=== PATIENT | female | born 1930 | race African-American/Black ===

== ENCOUNTER 2016-10-07 14:02 | Outpatient (CLI) | payer MEDICARE ==
[2016-10-07 14:39] LABS: INR-International Normal Ratio 2.3; Prothrombin Time 25.6 SEC (12.0-14.7)
== END 2016-10-07 14:03 | disposition home or self-care (01) ==
LOC: MADLAB 14:02
PROVIDERS: ATTEND Internal Medicine Cardiovascular Disease
DX: Z51.81 Encounter for therapeutic drug level monitoring (principal); Z86.718 Personal history of other venous thrombosis and embolism
CPT/HCPCS: 36415; 85610

== ENCOUNTER 2017-03-07 23:33 | Emergency (ER) | payer MEDICARE ==
[~2017-03-07 23:33] MED LIST: Donnatal Elixir 16.2 MG/5 ML UDCUP ONE
[2017-03-07] MEDS ORDERED: Lidocaine Viscous Sol 2% 15 ml UD Cup ONE (23:56)
[2017-03-07] MEDS ORDERED: Mag-Al Plus 1200 MG/1200 MG/120 MG/30 ML UDCUP ONE (23:56)
[2017-03-07] MEDS ORDERED: Donnatal Elixir 16.2 MG/5 ML UDCUP ONE (23:56)
== END 2017-03-08 00:30 | disposition home or self-care (01) ==
LOC: MADERS 23:33
DX: R10.13 Epigastric pain (principal); I25.10 Atherosclerotic heart disease of native coronary artery without angina pectoris; E11.9 Type 2 diabetes mellitus without complications; I10 Essential (primary) hypertension; Z87.891 Personal history of nicotine dependence; Z86.718 Personal history of other venous thrombosis and embolism; Z79.82 Long term (current) use of aspirin; Z79.891 Long term (current) use of opiate analgesic; Z79.899 Other long term (current) drug therapy; Z79.01 Long term (current) use of anticoagulants
CPT/HCPCS: 93005

== ENCOUNTER 2017-03-13 07:58 | Outpatient (CLI) | payer MEDICARE ==
[2017-03-13 08:53] LABS: INR-International Normal Ratio 3.6; Prothrombin Time 35.5 SEC (12.0-14.7)
== END 2017-03-13 07:59 | disposition home or self-care (01) ==
LOC: MADLAB 07:58
PROVIDERS: ATTEND Internal Medicine Cardiovascular Disease
DX: Z51.81 Encounter for therapeutic drug level monitoring (principal); Z86.718 Personal history of other venous thrombosis and embolism; Z79.01 Long term (current) use of anticoagulants
CPT/HCPCS: 36415; 85610

== ENCOUNTER 2017-04-07 09:23 | Outpatient (CLI) | payer MEDICARE ==
[2017-04-07 09:43] LABS: INR-International Normal Ratio 2.3
== END 2017-04-07 09:24 | disposition home or self-care (01) ==
LOC: MADLAB 09:23
PROVIDERS: ATTEND Internal Medicine Cardiovascular Disease
DX: Z86.718 Personal history of other venous thrombosis and embolism (principal)
CPT/HCPCS: 36415; 85610

== ENCOUNTER 2017-04-11 08:04 | Outpatient (CLI) | payer MEDICARE ==
--- NOTE | 2017-04-11 11:01 | ULT ---
ABDOMINAL ULTRASOUND: History: Abdominal pain, epigastric pain for multiple years. Comparison: CT abdomen and pelvis, 2015. FINDINGS: The hepatic echotexture is coarsened, suggesting steatosis. There is an exophytic cyst measuring 2.6 cm. Common bile duct measures 3 mm. The wall thickness measures 2 mm and is normal. Right kidney measures 6.5 x 3 x 3.7 cm. Spleen measures 7.8 x 3.5 x 4.3 cm. Left kidney measures 9.6 x 4.3 x 4.5 cm. No mass, hydronephrosis, or calcification of either kidney. Ureter and IVC not well seen. Pancreas is not well seen. The ultrasound Harp's sign was positive according to the technologist. IMPRESSION: 1. Positive sonographic Harp's sign according to the technologist without cholelithiasis however t he wall thickness measures up to 2-3 mm. HIDA scan may be beneficial in this patient if there is cli nical concern for acute cholecystitis. 2. Renal size at lower limits of normal. 3. No evidence of obstructive uropathy. POS: [facility]
== END 2017-04-11 08:05 | disposition home or self-care (01) ==
LOC: MADULT 08:04
PROVIDERS: ATTEND Family Medicine
DX: R10.13 Epigastric pain (principal); Z86.718 Personal history of other venous thrombosis and embolism
CPT/HCPCS: 76700

== ENCOUNTER 2017-05-22 07:59 | Outpatient (CLI) | payer MEDICARE ==
[2017-05-22 08:49] LABS: INR-International Normal Ratio 2.6; Prothrombin Time 28.8 SEC (12.0-14.7)
[2017-05-22 09:11] LABS: Anion Gap 13 mmol/L (10-20); BUN (Urea Nitrogen) 9 mg/dL (9.8-20.1); Calc. Creatinine Clearance 0 mL/min (70-130); Calcium 9.3 mg/dL (7.8-10.44); Carbon Dioxide 27 mmol/L (23-31); Chloride 102 mmol/L (98-107); Estimated GFR-MDRD 82; Glucose 151 mg/dL (83-110); Sodium 138 mmol/L (136-145)
[2017-05-22 17:27] LABS: Free Thyroxine Index 2.08 (1.4-3.1); T4 9.2 ug/dL (4.87-11.72)
== END 2017-05-22 08:00 | disposition home or self-care (01) ==
LOC: MADLAB 07:59
PROVIDERS: ATTEND Internal Medicine
DX: E03.9 Hypothyroidism, unspecified (principal); Z86.718 Personal history of other venous thrombosis and embolism
CPT/HCPCS: 36415; 80048; 84436; 84443; 84479; 85610

== ENCOUNTER 2017-05-26 08:15 | Outpatient (CLI) | payer MEDICARE ==
--- NOTE | 2017-05-26 08:59 | RAD ---
RIGHT KNEE FOUR VIEWS HISTORY: Right knee pain. FINDINGS: There is mild joint space narrowing and moderate degree of tricompartmental osteophytosis. Fluid di stends the suprapatellar bursa. Chondrocalcinosis is evident. No acute fracture, dislocation, or a ggressive osseous erosions. Calcification overlies the arterial structures. IMPRESSION: 1. Moderate degree of tricompartmental osteoarthritis. 2. Joint effusion. 3. Atherosclerosis. POS: [facility]
== END 2017-05-26 08:16 | disposition home or self-care (01) ==
LOC: MADRAD 08:15
PROVIDERS: ATTEND Family Medicine
DX: M25.561 Pain in right knee (principal); M17.11 Unilateral primary osteoarthritis, right knee; M25.461 Effusion, right knee; I70.90 Unspecified atherosclerosis; Z86.718 Personal history of other venous thrombosis and embolism

== ENCOUNTER 2017-06-27 08:35 | Outpatient (CLI) | payer MEDICARE ==
[2017-06-27 09:52] LABS: INR-International Normal Ratio 2.2; Prothrombin Time 25.2 SEC (12.0-14.7)
== END 2017-06-27 08:36 | disposition home or self-care (01) ==
LOC: MADLAB 08:35
PROVIDERS: ATTEND Internal Medicine Cardiovascular Disease
DX: Z86.718 Personal history of other venous thrombosis and embolism (principal)
CPT/HCPCS: 36415; 85610

== ENCOUNTER 2017-11-09 11:09 | Outpatient (CLI) | payer MEDICARE ==
[2017-11-09 11:29] LABS: Prothrombin Time 32.6 SEC (12.0-14.7)
--- NOTE | 2017-11-09 12:40 | RAD ---
KUB: History: Left sided abdominal pain. FINDINGS: The bowel gas pattern appears nonobstructive. No radiopaque calculi are seen. An IVC filter is noted. There are arthritic changes of the spine. IMPRESSION: No acute findings. POS: [facility]
== END 2017-11-09 11:10 | disposition home or self-care (01) ==
LOC: MADRAD 11:09
PROVIDERS: ATTEND Family Medicine
DX: R10.9 Unspecified abdominal pain (principal); Z86.718 Personal history of other venous thrombosis and embolism
CPT/HCPCS: 36415; 74018; 85610

== ENCOUNTER 2017-12-18 12:57 | Outpatient (CLI) | payer MEDICARE ==
[2017-12-18 13:57] LABS: INR-International Normal Ratio 2.5; Prothrombin Time 28.1 SEC (12.0-14.7)
[2017-12-18 14:34] LABS: ALT (SGPT) 36 U/L (8-55); AST (SGOT) 50 U/L (5-34); Albumin 3.7 g/dL (3.4-4.8); Alkaline Phosphatase 100 U/L (40-150); Anion Gap 16 mmol/L (10-20); BUN (Urea Nitrogen) 10 mg/dL (9.8-20.1); Bilirubin, Total 0.9 mg/dL (0.2-1.2); Calc. Creatinine Clearance 0 mL/min (70-130); Calcium 9.1 mg/dL (7.8-10.44); Carbon Dioxide 25 mmol/L (23-31); Cardiac Risk 4.3 (Less than 4.5); Chloride 101 mmol/L (98-107); Cholesterol 143 mg/dl (< 200 Desired); Estimated GFR-MDRD 83; Glucose 183 mg/dL (83-110); HDL Cholesterol 33 mg/dL (>60 Neg Risk); LDL Cholesterol, Calculated 82 mg/dL; Potassium 3.5 mmol/L (3.5-5.1); Protein, Total 6.7 g/dL (6.0-8.3); Sodium 138 mmol/L (136-145); Triglycerides 139 mg/dL (Less than 150)
[2017-12-18 20:44] LABS: Free Thyroxine Index 2.57 (1.4-3.1); T4 11.3 ug/dL (4.87-11.72); Vitamin D, 25 Hydroxy 101.4 ng/ml (> 30.0)
[2017-12-19 07:40] LABS: Thyroid Stimulating Hormone 0.498 uIU/mL (0.35-4.94)
== END 2017-12-18 12:58 | disposition home or self-care (01) ==
LOC: MADLAB 12:57
PROVIDERS: ATTEND Internal Medicine
DX: E11.65 Type 2 diabetes mellitus with hyperglycemia (principal); E03.9 Hypothyroidism, unspecified; E55.9 Vitamin D deficiency, unspecified; D51.8 Other vitamin B12 deficiency anemias; E78.00 Pure hypercholesterolemia, unspecified; R53.81 Other malaise; Z79.899 Other long term (current) drug therapy
CPT/HCPCS: 36415; 80053; 80061; 82306; 82607; 84436; 84443; 84479; 85610

== ENCOUNTER 2018-01-07 14:03 | Emergency (ER) | payer MEDICARE ==
[2018-01-07] MEDS ORDERED: Lidocaine Viscous Sol 2% 15 ml UD Cup ONE (15:14)
[2018-01-07] MEDS ORDERED: Mag-Al Plus 1200 MG/1200 MG/120 MG/30 ML UDCUP ONE (15:14)
[2018-01-07] MEDS ORDERED: Donnatal Elixir 16.2 MG/5 ML UDCUP ONE (15:14)
[2018-01-07] MEDS ORDERED: Morphine 10 MG/ML VIAL ONE (15:14)
[2018-01-07] MEDS ORDERED: Ondansetron HCl/PF 4 MG/2 ML Vial ONE (15:14)
[2018-01-07] MEDS ORDERED: Acetaminophen 500 MG TAB ONE (15:25)
[2018-01-07 17:58] LABS: Lymphocytes 47 % (21-51); MDiff Complete? YES; Mean Corpuscular HGB CONC 34.5 g/dL (32.0-36.0); Mean Corpuscular Hemoglobin 26.1 pg (27.0-31.0); Mean Corpuscular Volume 75.8 fl (81.0-99.0); Mean Platelet Volume 7.8 fL (7.4-10.4); Monocytes 5 % (0-10); Neutrophil 48 % (42-75); PLT Morphology Comment Appears Adequate; Platelet Count 209 thou/uL (130-400); RBC Distribution Width 13.2 % (11.5-14.5); Red Blood Cell (RBC) Count 4.59 mill/uL (4.20-5.40); White Blood Cell (WBC) Count 7.4 thou/uL (4.8-10.8)
[2018-01-07 18:09] LABS: ALT (SGPT) 22 U/L (8-55); AST (SGOT) 31 U/L (5-34); Albumin 3.2 g/dL (3.4-4.8); Alkaline Phosphatase 87 U/L (40-150); Anion Gap 11 mmol/L (10-20); BUN (Urea Nitrogen) 10 mg/dL (9.8-20.1); Calc. Creatinine Clearance 0 mL/min (70-130); Calcium 8.8 mg/dL (7.8-10.44); Carbon Dioxide 25 mmol/L (23-31); Chloride 102 mmol/L (98-107); Estimated GFR-MDRD 87; Globulin 3.4 g/dL (2.4-3.5); Glucose 130 mg/dL (83-110); Potassium 3.4 mmol/L (3.5-5.1); Protein, Total 6.6 g/dL (6.0-8.3); Sodium 135 mmol/L (136-145)
--- NOTE | 2018-01-07 20:19 | RAD ---
PORTABLE AP CHEST X-RAY: 01/07/2018 HISTORY: Shortness of breath. COMPARISON: 10/18/2015 FINDINGS: The cardiac silhouette remains enlarged. The pulmonary vasculature is at the upper limits of normal. There is suboptimal evaluation of the left lung base, due to the enlarged cardiac silhouette and th e technique of the study. Pleural fluid, atelectasis, and/or infiltrate at the left lung base cannot be excluded based on this exam. Vascular calcifications are seen in the thoracic aorta. No other interval change. IMPRESSION: 1. Suboptimal evaluation, left lung base. Atelectasis, pleural fluid, or infiltrate, left lung base , cannot be excluded based on this exam. 2. Cardiomegaly with pulmonary vasculature at the upper limits of normal. POS: [facility]
== END 2018-01-07 19:37 | disposition home or self-care (01) ==
LOC: MADERS 14:03
DX: K21.9 Gastro-esophageal reflux disease without esophagitis (principal); K57.92 Diverticulitis of intestine, part unspecified, without perforation or abscess without bleeding; E87.70 Fluid overload, unspecified; I25.10 Atherosclerotic heart disease of native coronary artery without angina pectoris; E11.9 Type 2 diabetes mellitus without complications; I10 Essential (primary) hypertension; Z87.891 Personal history of nicotine dependence; Z86.718 Personal history of other venous thrombosis and embolism; Z79.82 Long term (current) use of aspirin; Z79.899 Other long term (current) drug therapy; Z79.01 Long term (current) use of anticoagulants
CPT/HCPCS: 36415; 71045; 80053; 85025; 96374; 96375; J2270; J2405

== ENCOUNTER 2018-04-16 07:56 | Outpatient (CLI) | payer MEDICARE ==
[2018-04-16 08:31] LABS: INR-International Normal Ratio 3.7
== END 2018-04-16 07:57 | disposition home or self-care (01) ==
LOC: MADLAB 07:56
PROVIDERS: ATTEND Internal Medicine Cardiovascular Disease
DX: Z86.718 Personal history of other venous thrombosis and embolism (principal)
CPT/HCPCS: 36415; 85610

== ENCOUNTER 2018-04-30 07:53 | Outpatient (CLI) | payer MEDICARE ==
[2018-04-30 08:27] LABS: INR-International Normal Ratio 2.6; Prothrombin Time 28.1 SEC (12.0-14.7)
== END 2018-04-30 07:54 | disposition home or self-care (01) ==
LOC: MADLAB 07:53
PROVIDERS: ATTEND Internal Medicine Cardiovascular Disease
DX: Z86.718 Personal history of other venous thrombosis and embolism (principal)
CPT/HCPCS: 36415; 85610

== ENCOUNTER 2018-05-01 15:01 | Outpatient (CLI) | payer MEDICARE ==
--- NOTE | 2018-05-01 17:10 | RAD ---
TWO VIEWS CHEST: 05/01/18 COMPARISON: 01/07/18. HISTORY: Short of breath. FINDINGS: There is prominence of the cardiac silhouette. There is no pneumothorax. There is pulmonary vascular congestion and perihilar/bibasilar interstitial prominence, slightly worse when compared to prior lissette ging. Blunting of the right costophrenic angle suggests a small right pleural effusion. No air space disease. Lateral imaging demonstrates an incompletely imaged IVC filter and atherosclerotic calcifica tion within the abdominal aorta. IMPRESSION: Interstitial opacity and pulmonary vascular congestion, and probable right pleural effusion. The find ings suggest interstitial pulmonary edema. POS: [facility]
--- NOTE | 2018-05-01 17:19 | RAD ---
ONE VIEW ABDOMEN 05/01/18 COMPARISON: 11/09/17. HISTORY: Left lower quadrant pain. FINDINGS: Nonspecific bowel gas pattern. Moderate fecal material in a nondistended, nondilated colon. No eviden ce of pneumoperitoneum on the supine projection. No suspicious densities in the abdomen or pelvis. IV C filter is noted. IMPRESSION: Nonspecific bowel gas pattern. POS: [facility]
== END 2018-05-01 15:02 | disposition home or self-care (01) ==
LOC: MADRAD 15:01
PROVIDERS: ATTEND Family Medicine
DX: R06.02 Shortness of breath (principal); R10.32 Left lower quadrant pain; R09.89 Other specified symptoms and signs involving the circulatory and respiratory systems; R91.8 Other nonspecific abnormal finding of lung field
CPT/HCPCS: 71046; 74018; 93005; 93010

== ENCOUNTER 2018-07-27 12:06 | Outpatient (CLI) | payer MEDICARE ==
[2018-07-27 12:43] LABS: INR-International Normal Ratio 2.3; Prothrombin Time 25.1 SEC (12.0-14.7)
[2018-07-27 12:50] LABS: ALT (SGPT) 23 U/L (8-55); AST (SGOT) 33 U/L (5-34); Albumin 3.7 g/dL (3.4-4.8); Alkaline Phosphatase 101 U/L (40-150); Anion Gap 14 mmol/L (10-20); BUN (Urea Nitrogen) 13 mg/dL (9.8-20.1); Bilirubin, Total 0.7 mg/dL (0.2-1.2); Calc. Creatinine Clearance 0 mL/min (70-130); Calcium 9.5 mg/dL (7.8-10.44); Carbon Dioxide 25 mmol/L (23-31); Cardiac Risk 3.6 (Less than 4.5); Chloride 107 mmol/L (98-107); Cholesterol 157 mg/dl (< 200 Desired); Estimated GFR-MDRD 75; Globulin 3.5 g/dL (2.4-3.5); Glucose 154 mg/dL (83-110); HDL Cholesterol 44 mg/dL (>60 Neg Risk); LDL Cholesterol, Calculated 86 mg/dL; Potassium 3.6 mmol/L (3.5-5.1); Protein, Total 7.2 g/dL (6.0-8.3); Sodium 142 mmol/L (136-145); Triglycerides 137 mg/dL (Less than 150)
[2018-07-27 13:04] LABS: Thyroid Stimulating Hormone 0.8406 uIU/mL (0.35-4.94)
[2018-07-27 17:11] LABS: Free Thyroxine Index 2.34 (1.4-3.1); T4 10.6 ug/dL (4.87-11.72)
== END 2018-07-27 12:07 | disposition home or self-care (01) ==
LOC: MADLAB 12:06
PROVIDERS: ATTEND Internal Medicine
DX: E11.65 Type 2 diabetes mellitus with hyperglycemia (principal); E03.9 Hypothyroidism, unspecified; E78.5 Hyperlipidemia, unspecified
CPT/HCPCS: 36415; 80053; 80061; 84436; 84443; 84479; 85610

== ENCOUNTER 2018-08-08 09:07 | Outpatient (CLI) | payer MEDICARE ==
--- NOTE | 2018-08-08 09:51 | RAD ---
RIGHT KNEE RADIOGRAPHS TWO VIEWS: Date: 08-08-18 Provided Clinical History: Osteoarthritis. FINDINGS: There is no evidence for fracture or other acute osseous abnormality. Tricompartmental osteophyte for mation with tricompartmental joint space narrowing and moderate knee joint capsular distension. Vascu lar calcifications are seen. IMPRESSION: Degenerative arthrosis of the right knee with associated knee joint effusion. POS: [facility]
--- NOTE | 2018-08-08 09:51 | RAD ---
LEFT KNEE TWO VIEWS: HISTORY: An 87-year-old female with a history of osteoarthritis. FINDINGS: AP and lateral standing views of the left knee are performed. Tricompartment arthrosis and degenerat meli changes are noted, with the most marked narrowing involving the medial compartment, with hypertro phic osteophytosis. No acute fracture or dislocation. IMPRESSION: 1. Tricompartment osteoarthrosis. 2. No acute fracture or dislocation. POS: [facility]
== END 2018-08-08 09:08 | disposition home or self-care (01) ==
LOC: MADRAD 09:07
PROVIDERS: ATTEND Family Medicine
DX: M17.0 Bilateral primary osteoarthritis of knee (principal); M25.461 Effusion, right knee

== ENCOUNTER 2018-09-26 20:42 | Emergency (ER) | payer MEDICARE ==
[2018-09-26] MEDS ORDERED: Nitroglycerin 2% Ointment 1 INCH/1 GM Packet ONE (21:11)
[2018-09-26 21:28] LABS: Anisocytosis SLIGHT = 6-15 cells (100X) (0-5/hpf); Hemoglobin 11.7 g/dL (12.0-16.0); Hypochromia SLIGHT = 6-15 cells (100X) (0-5/hpf); Lymphocytes 29 % (21-51); MDiff Complete? YES; Mean Corpuscular HGB CONC 31.6 g/dL (32.0-36.0); Mean Corpuscular Hemoglobin 24.9 pg (27.0-31.0); Mean Corpuscular Volume 78.8 fL (78.0-98.0); Mean Platelet Volume 8.5 fL (7.4-10.4); Microcytosis SLIGHT = 6-15 cells (100X) (0-5/hpf); Monocytes 7 % (0-10); Neutrophil 62 % (42-75); Platelet Count 329 thou/uL (130-400); Poikilocytosis SLIGHT = 6-15 cells (100X) (0-5/hpf); RBC Distribution Width 13.7 % (11.5-14.5); RBC Morphology Abnormal; Reactive Lymphocytes 2 % (0-10); White Blood Cell (WBC) Count 11.9 thou/uL (4.8-10.8)
[2018-09-26 21:30] LABS: AST (SGOT) 27 U/L (5-34); Albumin 3.8 g/dL (3.4-4.8); Anion Gap 14 mmol/L (10-20); Bilirubin, Total 0.5 mg/dL (0.2-1.2); Calc. Creatinine Clearance 0 mL/min (70-130); Calcium 9.3 mg/dL (7.8-10.44); Carbon Dioxide 30 mmol/L (23-31); Chloride 100 mmol/L (98-107); Estimated GFR-MDRD 72; Globulin 3.2 g/dL (2.4-3.5); Magnesium 1.7 mg/dL (1.6-2.6); Potassium 3.9 mmol/L (3.5-5.1); Sodium 140 mmol/L (136-145)
--- NOTE | 2018-09-26 21:39 | RAD ---
TWO VIEWS OF THE CHEST: 09/26/18 COMPARISON: 05/01/18 HISTORY: Chest pain and hypertension. FINDINGS: Two views of the chest shows an enlarged but stable cardiomediastinal silhouette. Increased interstit ial markings are stable. There is no evidence of consolidation, mass, or pleural effusion. IMPRESSION: Cardiomegaly without evidence of acute cardiopulmonary disease. POS: [facility]
[2018-09-26 21:41] LABS: ALT (SGPT) 19 U/L (8-55); Alkaline Phosphatase 98 U/L (40-150); BUN (Urea Nitrogen) 13 mg/dL (9.8-20.1); Glucose 117 mg/dL (83-110)
[2018-09-26] MEDS ORDERED: HYDROcodone/Acetaminophen 5/325 mg Tablet ONE (21:52)
== END 2018-09-26 22:22 | disposition short-term general hospital (02) ==
LOC: MADERS 20:42
DX: I20.9 Angina pectoris, unspecified (principal); E03.9 Hypothyroidism, unspecified; E78.5 Hyperlipidemia, unspecified; I10 Essential (primary) hypertension; E11.9 Type 2 diabetes mellitus without complications; Z86.718 Personal history of other venous thrombosis and embolism; Z79.82 Long term (current) use of aspirin; Z79.899 Other long term (current) drug therapy
CPT/HCPCS: 71046; 80053; 83735; 83880; 84484; 85025; 93005

== ENCOUNTER 2018-10-31 10:12 | Outpatient (CLI) | payer MEDICARE ==
[2018-10-31 11:00] LABS: INR-International Normal Ratio 1.7
== END 2018-10-31 10:13 | disposition home or self-care (01) ==
LOC: MADLAB 10:12
PROVIDERS: ATTEND Family Medicine
DX: Z86.718 Personal history of other venous thrombosis and embolism (principal)
CPT/HCPCS: 36415; 85610

== ENCOUNTER 2018-12-20 04:35 | Inpatient (IN) | payer MEDICARE ==
[2018-12-20] MEDS ORDERED: Levofloxacin 500 mg/D5W 100 ml Premix Bag ONE (05:50)
[2018-12-20 06:20] LABS: #Basophils 0.1 thou/uL (0.0-0.2); #Lymphocytes 1.1 thou/uL (1.20-3.40); #Monocytes 0.6 thou/uL (0.11-0.59); #Neutrophils 10.9 thou/uL (1.40-6.50); %Basophils 0.9 % (0.0-1.0); %Eosinophils 0.3 % (0.0-10.0); %Lymphocytes 8.5 % (21.0-51.0); %Neutrophils 85.3 % (42.0-75.0); Hemoglobin 11.5 g/dL (12.0-16.0); Mean Corpuscular HGB CONC 31.9 g/dL (32.0-36.0); Mean Corpuscular Hemoglobin 24.4 pg (27.0-31.0); Mean Corpuscular Volume 76.6 fL (78.0-98.0); Platelet Count 261 thou/uL (130-400); RBC Distribution Width 13.9 % (11.5-14.5); Red Blood Cell (RBC) Count 4.71 mill/uL (4.20-5.40); White Blood Cell (WBC) Count 12.7 thou/uL (4.8-10.8)
[2018-12-20 06:32] LABS: ALT (SGPT) 20 U/L (8-55); AST (SGOT) 25 U/L (5-34); Albumin 3.5 g/dL (3.4-4.8); Alkaline Phosphatase 94 U/L (40-150); Anion Gap 14 mmol/L (10-20); BUN (Urea Nitrogen) 10 mg/dL (9.8-20.1); Bilirubin, Total 1.2 mg/dL (0.2-1.2); Calc. Creatinine Clearance 0 mL/min (70-130); Calcium 9.4 mg/dL (7.8-10.44); Carbon Dioxide 25 mmol/L (23-31); Chloride 101 mmol/L (98-107); Estimated GFR-MDRD 80; Globulin 3.6 g/dL (2.4-3.5); Glucose 167 mg/dL (83-110); Potassium 3.6 mmol/L (3.5-5.1); Protein, Total 7.1 g/dL (6.0-8.3); Sodium 136 mmol/L (136-145)
[2018-12-20 06:34] LABS: Anisocytosis SLIGHT = 6-15 cells (100X) (0-5/hpf); MDiff Complete? YES; Platelet Morphology Comment Appears Adequate
--- NOTE | 2018-12-20 08:06 | RAD ---
SINGLE VIEW CHEST: Date: 12/20/18 COMPARISON: 09/28/18. HISTORY: Dyspnea. FINDINGS: Single view of the chest shows an enlarged but stable cardiomediastinal silhouette. Increased interst itial lung markings are present. There may be superimposed air space opacities in the bilateral lower lobes. IMPRESSION: 1. Cardiomegaly. 2. Possible bilateral lower lobe atelectasis versus infiltrates. POS: [facility]
[2018-12-20 08:47] VITALS: BMI 34.1
[2018-12-20] MEDS ORDERED: Benzonatate 100 MG CAP PO PRN (09:46)
[2018-12-20] MEDS ORDERED: traMADol HCl 50 MG TAB PO PRN (09:49)
[2018-12-20] MEDS ORDERED: HYDROcodone/Acetaminophen 5/325 mg Tablet PO PRN ×2 (10:02)
[2018-12-20] MEDS ORDERED: Ondansetron PF 4 MG/2 ML Vial SLOW IVP PRN (10:02)
[2018-12-20] MEDS ORDERED: Acetaminophen 325 MG TAB PO PRN (10:02)
[2018-12-20] MEDS ORDERED: Aspirin Chewable 81 MG TAB PO SCH (10:15)
[2018-12-20] MEDS ORDERED: Hydrochlorothiazide 25 MG TAB PO SCH (10:15)
[2018-12-20] MEDS: Azithromycin 250 MG TAB PO SCH (10:25)
[2018-12-20] MEDS ORDERED: Losartan 25 MG TAB PO SCH (10:30)
[2018-12-20] MEDS ORDERED: Levothyroxine Sodium 88 MCG TAB PO SCH (10:30)
[2018-12-20 11:36] LABS: INR-International Normal Ratio 2.5; Prothrombin Time 26.6 SEC (12.0-14.7)
[2018-12-20] MEDS ORDERED: Guaifenesin DM 100-10/5 ML UDCUP PO PRN (17:56)
[2018-12-20] MEDS: metFORMIN XR 500 MG TAB PO SCH (20:45)
[2018-12-20] MEDS: Atorvastatin Calcium 10 MG TAB PO SCH (20:45)
[2018-12-20] MEDS: Alogliptin 25 MG TAB PO SCH (20:47)
--- NOTE | 2018-12-21 01:01 | HP ---
PRIMARY CARE PHYSICIAN: Vi Mclaughlin MD REASON FOR ADMISSION: Community-acquired pneumonia, failed outpatient treatment. HISTORY OF PRESENT ILLNESS: Ms. Ya is an 88-year-old female with a medical history of diabetes type 2, obstructive sleep apnea, hypertension, dyslipidemia, hypothyroidism, history of DVTs and PEs, on oral anticoagulant, and GERD. The patient was in her normal state of health until 4 days ago when she started having coughing spells, shortness of breath and congestion. The patient did see me in the office on the a.m. on 12/19 due to these and was diagnosed with right-sided lower lobe pneumonia. The patient was started on azithromycin and told to start neb treatments every 4 hours for the next 2 days. She was told to follow up with me in 2 days, but the patient states she woke up in the middle of the night in respiratory distress, coughing spells and just very lethargic. The patient presented to the emergency room complaining of fever, body aches, shortness of breath and wheezing. Initial vital signs showed a temperature of 101.5, respirations 20, blood pressure 174/68, O2 94% on room air. The patient had rales to the right middle and lower lobe and chest x-ray in the emergency room showed patchy infiltrates to the right middle and lower lobes. The patient was given Levaquin, DuoNebs, and labs were drawn. A flu test was negative and the decision was made to admit the patient for acute lower extremity edema and community-acquired pneumonia. When I saw the patient in the room, she stated that she felt a little better than she did upon evaluation in the ER. She continues to have a productive cough. She complains that the sputum is now greenish to yellow without any blood. She has had fevers, but none since she has been on the floor. She denies any chest pain, palpitations, or dizziness. PAST MEDICAL HISTORY: Diabetes type 2, DVT with PE, on Coumadin, hypertension, hyperlipidemia, hypothyroidism, obstructive sleep apnea, and GERD. PAST SURGICAL HISTORY: Stents placement. SOCIAL HISTORY: The patient lives at home with family. Denies alcohol, tobacco, or illicit drug use. ALLERGIES: PENICILLIN CAUSES RASH. FAMILY HISTORY: Significant for thyroid disease and heart disease. CODE STATUS: The patient is a full code. MEDICATIONS: 1. Azithromycin 250 daily x4 days. 2. Benzonatate (Tessalon Perles) 100 t.i.d. 3. Levothyroxine 88 mcg daily. 4. Losartan/hydrochlorothiazide 100/25. 5. Protonix 40 daily. 6. Kombiglyze XR 01/1000 one tab daily. 7. Zocor 40 daily. 8. Warfarin 4 mg daily. 9. Aspirin 81 mg daily. REVIEW OF SYSTEMS: Complete review of systems negative, otherwise mentioned in the history of present illness as below: CONSTITUTIONAL: Denies weight gain, weight loss. Complains of fever and generalized weakness. CARDIOVASCULAR: Denies chest pain, palpitation, or orthopnea. RESPIRATORY: Complains of cough, shortness of breath. GASTROINTESTINAL: Denies abdominal pain, nausea, vomiting, diarrhea, or constipation. GENITOURINARY: Denies urinary frequency, urgency, or dysuria. MUSCULOSKELETAL: Complains of bilateral knee pains. Denies swelling or erythema. NEUROLOGIC: Denies confusion, headaches, or blurry vision. SKIN: Denies rash or bleeding tendencies. PHYSICAL EXAMINATION: VITAL SIGNS: Temperature 99.3, pulse 98, respirations 18, blood pressure 156/68, O2 sats 93% on room air. GENERAL: The patient is a very pleasant 88-year-old female sitting comfortably in the bedside chair, in no apparent distress. Cooperative with exam. HEENT: Normocephalic, atraumatic. Pupils are equal, round, reactive to light. Sclerae are nonicteric. Moist mucous membranes without erythema or exudate. NECK: Supple. No JVD. CARDIOVASCULAR: Heart has regular rhythm. No murmurs. S1 and S2. LUNGS: Bilateral rales in the lower bases with crackles. No wheezing. ABDOMEN: Positive bowel sounds. Soft, nontender, nondistended. No guarding. No rebound. No rigidity. EXTREMITIES: No clubbing, cyanosis, or edema. NEUROLOGIC: The patient is alert, awake, oriented x3. No focal deficits. LABORATORY DATA AND IMAGING STUDIES: 1. Chest x-ray shows cardiomegaly. 2. Possible bilateral lower lobe atelectasis versus infiltrates. Labs, WBC 12.7, hemoglobin 11.5, hematocrit 36.1, platelets 261. PT 26.6, INR 2.5. Lactic acid 1.2. Troponin 0.01. BNP 67.4. Sodium 136, potassium 3.4, BUN 10, creatinine 0.82, glucose 167. ASSESSMENT AND PLAN: This is an 88-year-old female with a history of hypertension, hyperlipidemia, DVT, pulmonary embolism, on Coumadin, obstructive sleep apnea, who was admitted due to worsening shortness of breath, fever and cough. The patient is to be admitted to the medical floor for community-acquired pneumonia. The patient will be started on IV Levaquin once a day for anticipated 7-day course. We will start DuoNebs every 4 hours for shortness of breath and wheezing. We will give the patient Robitussin DM p.r.n. cough. We will replete electrolytes and monitor hemodynamic status. We will follow a repeat chest x-ray prior to discharge. We will restart the patient's home medications. We will continue our Coumadin, which is therapeutic with a goal of 2 to 3. For DVT prophylaxis, she is already on an anticoagulant. For GI prophylaxis, we will continue the patient on Protonix. Family to bring in a CPAP machine for nightly use. CODE STATUS: The patient is a full code. DISPOSITION: Anticipate a greater than 3 midnight stay given fevers, respiratory distress and extensive comorbidities. We plan to discharge the patient home once medically stable. Job ID: [id number]
[2018-12-21] MEDS: Levothyroxine Sodium 88 MCG TAB PO SCH (05:03)
[2018-12-21 05:33] LABS: INR-International Normal Ratio 2.2; Prothrombin Time 24.1 SEC (12.0-14.7)
[2018-12-21 05:59] LABS: Hemoglobin 10.2 g/dL (12.0-16.0); Mean Corpuscular HGB CONC 32.4 g/dL (32.0-36.0); Mean Corpuscular Hemoglobin 24.6 pg (27.0-31.0); Mean Corpuscular Volume 76.1 fL (78.0-98.0); Platelet Count 258 thou/uL (130-400); RBC Distribution Width 13.8 % (11.5-14.5); Red Blood Cell (RBC) Count 4.14 mill/uL (4.20-5.40); White Blood Cell (WBC) Count 9.2 thou/uL (4.8-10.8)
[2018-12-21 06:19] LABS: Band 1 % (5-11); Eosinophils 3 % (0-10); Lymphocytes 35 % (21-51); MDiff Complete? YES; Monocytes 7 % (0-10); Neutrophil 54 % (42-75); Platelet Morphology Comment Appears Adequate; RBC Morphology Normal
[2018-12-21] MEDS: Azithromycin 250 MG TAB PO SCH (08:36)
[2018-12-21] MEDS: Hydrochlorothiazide 25 MG TAB PO SCH (08:36)
[2018-12-21] MEDS: Losartan 25 MG TAB PO SCH (08:36)
[2018-12-21] MEDS: Aspirin Chewable 81 MG TAB PO SCH (08:36)
[2018-12-21 09:20] LABS: ALT (SGPT) 19 U/L (8-55); AST (SGOT) 21 U/L (5-34); Albumin 3.2 g/dL (3.4-4.8); Alkaline Phosphatase 77 U/L (40-150); Anion Gap 16 mmol/L (10-20); BUN (Urea Nitrogen) 9 mg/dL (9.8-20.1); Calc. Creatinine Clearance 70 mL/min (70-130); Calcium 9.4 mg/dL (7.8-10.44); Carbon Dioxide 23 mmol/L (23-31); Chloride 102 mmol/L (98-107); Estimated GFR-MDRD 83; Globulin 3.2 g/dL (2.4-3.5); Glucose 150 mg/dL (83-110); Potassium 3.5 mmol/L (3.5-5.1); Protein, Total 6.4 g/dL (6.0-8.3); Sodium 137 mmol/L (136-145)
[2018-12-21] MEDS: Warfarin Sodium 2 MG TAB PO SCH ×2 (11:50→17:10)
[2018-12-21] MEDS: Prevnar 13-Val Conj/PF 0.5 ML SYRINGE IM ONE (13:52)
[2018-12-21] MEDS: Atorvastatin Calcium 10 MG TAB PO SCH (20:02)
[2018-12-21] MEDS: Alogliptin 25 MG TAB PO SCH (20:02)
[2018-12-21] MEDS: metFORMIN XR 500 MG TAB PO SCH (20:02)
[2018-12-22] MEDS: Levothyroxine Sodium 88 MCG TAB PO SCH (05:04)
[2018-12-22 05:29] LABS: INR-International Normal Ratio 1.7; Prothrombin Time 20.1 SEC (12.0-14.7)
[2018-12-22] MEDS: Hydrochlorothiazide 25 MG TAB PO SCH (09:29)
[2018-12-22] MEDS: Azithromycin 250 MG TAB PO SCH (09:29)
[2018-12-22] MEDS: Losartan 25 MG TAB PO SCH (09:29)
[2018-12-22] MEDS: Aspirin Chewable 81 MG TAB PO SCH (09:29)
[2018-12-22] MEDS: Warfarin Sodium 2 MG TAB PO SCH (17:16)
[2018-12-22] MEDS: Prevnar 13-Val Conj/PF 0.5 ML SYRINGE IM ONE (20:42)
[2018-12-22] MEDS: metFORMIN XR 500 MG TAB PO SCH (20:42)
[2018-12-22] MEDS: Alogliptin 25 MG TAB PO SCH (20:51)
[2018-12-22] MEDS: Atorvastatin Calcium 10 MG TAB PO SCH (20:51)
[2018-12-23] MEDS: Levothyroxine Sodium 88 MCG TAB PO SCH (05:00)
[2018-12-23 05:26] LABS: INR-International Normal Ratio 1.7; Prothrombin Time 19.8 SEC (12.0-14.7)
[2018-12-23] MEDS: Aspirin Chewable 81 MG TAB PO SCH (09:26)
[2018-12-23] MEDS: Losartan 25 MG TAB PO SCH (09:26)
[2018-12-23] MEDS: Hydrochlorothiazide 25 MG TAB PO SCH (09:27)
[2018-12-23] MEDS: Warfarin Sodium 2 MG TAB PO SCH (16:58)
[2018-12-23] MEDS: Atorvastatin Calcium 10 MG TAB PO SCH (20:49)
[2018-12-23] MEDS: Alogliptin 25 MG TAB PO SCH (20:49)
[2018-12-23] MEDS: metFORMIN XR 500 MG TAB PO SCH (20:50)
[2018-12-24] MEDS: Levothyroxine Sodium 88 MCG TAB PO SCH (05:05)
[2018-12-24 05:34] LABS: INR-International Normal Ratio 1.7; Prothrombin Time 19.7 SEC (12.0-14.7)
[2018-12-24 08:46] VITALS: BP 118/56; TEMP 97.8
[2018-12-24] MEDS: Losartan 25 MG TAB PO SCH (08:47)
[2018-12-24] MEDS: Hydrochlorothiazide 25 MG TAB PO SCH (08:47)
[2018-12-24] MEDS: Aspirin Chewable 81 MG TAB PO SCH (08:47)
--- NOTE | 2018-12-24 13:03 | RAD ---
CHEST TWO VIEWS: 12/24/2018 HISTORY: Pneumonia. COMPARISON: 09/26/2018 FINDINGS: The cardiac silhouette is prominent. Blunting of bilateral costophrenic angle is noted. There is pu lmonary vascular congestion with perihilar and bibasilar interstitial prominence. No pneumothorax se en. IMPRESSION: Pulmonary vascular congestion with perihilar and bibasilar interstitial prominence, as well as probab le small bilateral pleural effusions. Findings suggest possible pulmonary edema. Inflammatory/infec tious pneumonitis in the lung bases cannot be excluded. Follow-up imaging following treatment, to do cument resolution, advised. POS: [facility]
--- NOTE | 2018-12-25 01:57 | DIS ---
DATE OF ADMISSION: 12/20/2018 DATE OF DISCHARGE: 12/24/2018 ADMITTING AND DISCHARGING PHYSICIAN: Vi Mclaughlin MD PRIMARY CARE PHYSICIAN: Vi Mclaughlin MD DISCHARGE DISPOSITION: Back to home with family members. DISCHARGE DIAGNOSES: 1. Community-acquired pneumonia. 2. Physical deconditioning. 3. Bilateral knee osteoarthritis. 4. History of pulmonary embolism and deep vein thrombosis, on long-term Coumadin use. 5. Diabetes type 2. 6. Hypertension. 7. Obstructive sleep apnea. DISCHARGE MEDICATIONS: 1. DuoNeb 3 mL q.4 p.r.n. 2. Aspirin 81 daily. 3. Lipitor 20 daily. 4. Vitamin D3, 5000 units daily. 5. Alogliptin 25 daily. 6. Hydrochlorothiazide/losartan 25/100. 7. Levothyroxine 88 mcg daily. 8. Warfarin 4 mg daily. 9. Kombiglyze XR 01/1000 one tab daily. 10. Protonix 40 daily. DISCHARGE INSTRUCTIONS: Follow up with PCP within 1 week. Continue self physical therapy at home, Coumadin-restricted diet. BRIEF HOSPITAL COURSE: Ms. Ya is an 88-year-old female who is a patient of mine who had presented to the emergency room on the 20 of December due to worsening shortness of breath, cough, and lethargy. The patient was seen by me in my office on the morning of the , started on azithromycin and DuoNeb, but she states she only took the DuoNeb once and she woke up in the middle of the night short of breath, lethargic, with severe coughing spells. The patient presented to the emergency room where a chest x-ray was done and confirmed bilateral lower lobe pneumonias and possible atelectasis. The patient was started on IV Levaquin and DuoNeb routine and as needed. She completed a 5-day course of IV Levaquin and also completed azithromycin. The patient's condition improved significantly. She was afebrile throughout hospitalization and her mental status was at baseline. She had no confusion, no headaches. By today, day of discharge, she was happy and excited to go home. She notes some weakness, but she states this improved throughout the course of the hospitalization. Repeat chest x-ray was done prior to discharge, but the results were not in the documentation before she was discharged home. The patient was discharged with family members in a stable condition. She was told to follow up with PCP within 1 week. On day of discharge, vital signs were, temperature 97.8, pulse 88, respiration 18, O2 of 93% on room air, blood pressure 118/56. The total time spent in preparation and evaluation of the patient for this discharge summary was a total of 35 minutes. The patient is a full code. Job ID: [id number]
== END 2018-12-24 14:00 | disposition home or self-care (01) | DRG 195 ==
LOC: MADERS 04:35 → MADMS 07:39
PROVIDERS: ADMIT Family Medicine; ATTEND Family Medicine
DX: J18.9 Pneumonia, unspecified organism (principal); E11.9 Type 2 diabetes mellitus without complications; G47.33 Obstructive sleep apnea (adult) (pediatric); I10 Essential (primary) hypertension; E78.5 Hyperlipidemia, unspecified; E03.9 Hypothyroidism, unspecified; K21.9 Gastro-esophageal reflux disease without esophagitis; R53.81 Other malaise; M17.0 Bilateral primary osteoarthritis of knee; Z86.718 Personal history of other venous thrombosis and embolism; Z86.711 Personal history of pulmonary embolism; Z88.0 Allergy status to penicillin; Z79.82 Long term (current) use of aspirin; Z79.01 Long term (current) use of anticoagulants
CPT/HCPCS: 36415; 36416; 71045; 71046; 80053; 83605; 83880; 84484; 85025; 85610; 87040; 87804; 90471; 90670; 93005; 94640; 96365; G0009; J1956; J2405; J7620

== ENCOUNTER 2018-12-31 14:13 | Outpatient (CLI) | payer MEDICARE ==
--- NOTE | 2018-12-31 14:38 | RAD ---
FXR Chest Pa Lat STANDARD History: [Pneumonia] Comparison: Radiograph December 24, 2018 Findings: Heart size is enlarged. Small effusions. Bibasilar opacities are similar. No acute osseous abnormality Impression: Findings suggest decompensated heart failure. No definite pneumonia is appreciated.
== END 2018-12-31 14:14 | disposition home or self-care (01) ==
LOC: MADRAD 14:13
PROVIDERS: ATTEND Family Medicine
DX: J18.1 Lobar pneumonia, unspecified organism (principal); Z86.718 Personal history of other venous thrombosis and embolism
CPT/HCPCS: 71046

== ENCOUNTER 2019-01-07 13:24 | Outpatient (CLI) | payer MEDICARE ==
[2019-01-07 14:05] LABS: INR-International Normal Ratio 2.6; Prothrombin Time 27.5 SEC (12.0-14.7)
== END 2019-01-07 13:25 | disposition home or self-care (01) ==
LOC: MADLABBHPM 13:24
PROVIDERS: ATTEND Family Medicine
DX: Z86.718 Personal history of other venous thrombosis and embolism (principal)
CPT/HCPCS: 36415; 85610

== ENCOUNTER 2019-01-30 09:32 | Outpatient (CLI) | payer MEDICARE ==
[2019-01-30 09:56] LABS: INR-International Normal Ratio 2.7; Prothrombin Time 28.9 SEC (12.0-14.7)
[2019-01-30 10:21] LABS: Thyroid Stimulating Hormone 0.6481 uIU/mL (0.35-4.94)
[2019-01-30 17:15] LABS: Free Thyroxine Index 3.05 (1.4-3.1); T4 12.1 ug/dL (4.87-11.72)
== END 2019-01-30 09:33 | disposition home or self-care (01) ==
LOC: MADLAB 09:32
PROVIDERS: ATTEND Internal Medicine
DX: E03.9 Hypothyroidism, unspecified (principal)
CPT/HCPCS: 36415; 84436; 84443; 84479; 85610

== ENCOUNTER 2019-03-07 10:55 | Emergency (ER) | payer MEDICARE ==
[2019-03-07 11:40] LABS: INR-International Normal Ratio 2.5; Prothrombin Time 26.6 SEC (12.0-14.7)
[2019-03-07 11:47] LABS: #Basophils 0.1 thou/uL (0.0-0.2); #Eosinphils 0.2 thou/uL (0.0-0.7); #Lymphocytes 2.7 thou/uL (1.20-3.40); #Monocytes 0.5 thou/uL (0.11-0.59); #Neutrophils 2.8 thou/uL (1.40-6.50); %Eosinophils 2.8 % (0.0-10.0); %Lymphocytes 42.9 % (21.0-51.0); %Monocytes 7.3 % (0.0-10.0); %Neutrophils 45.1 % (42.0-75.0); Hemoglobin 11.1 g/dL (12.0-16.0); Mean Corpuscular Hemoglobin 23.7 pg (27.0-31.0); Mean Corpuscular Volume 76.3 fL (78.0-98.0); Mean Platelet Volume 7.5 fL (7.4-10.4); Platelet Count 288 thou/uL (130-400); RBC Distribution Width 13.4 % (11.5-14.5); Red Blood Cell (RBC) Count 4.68 mill/uL (4.20-5.40); White Blood Cell (WBC) Count 6.3 thou/uL (4.8-10.8)
== END 2019-03-07 12:01 | disposition home or self-care (01) ==
LOC: MADERS 10:55
DX: R04.0 Epistaxis (principal); E03.9 Hypothyroidism, unspecified; E78.5 Hyperlipidemia, unspecified; I10 Essential (primary) hypertension; Z86.718 Personal history of other venous thrombosis and embolism; I25.10 Atherosclerotic heart disease of native coronary artery without angina pectoris; E11.9 Type 2 diabetes mellitus without complications; Z87.891 Personal history of nicotine dependence; Z79.82 Long term (current) use of aspirin; Z79.899 Other long term (current) drug therapy
CPT/HCPCS: 36415; 85025; 85610; 99283

== ENCOUNTER 2019-03-07 15:51 | Outpatient (CLI) | payer MEDICARE ==
[2019-03-07 16:24] LABS: INR-International Normal Ratio 2.4; Prothrombin Time 26.5 SEC (12.0-14.7)
== END 2019-03-07 15:52 | disposition home or self-care (01) ==
LOC: MADLAB 15:51
PROVIDERS: ATTEND Internal Medicine Cardiovascular Disease
DX: Z51.81 Encounter for therapeutic drug level monitoring (principal); Z79.01 Long term (current) use of anticoagulants; Z86.718 Personal history of other venous thrombosis and embolism
CPT/HCPCS: 36415

== ENCOUNTER 2019-03-08 08:47 | Emergency (ER) | payer MEDICARE ==
[2019-03-08] MEDS ORDERED: Oxymetazoline HCl 0.05% ( 15 ML ) ONE (08:56)
== END 2019-03-08 09:51 | disposition home or self-care (01) ==
LOC: MADERS 08:47
DX: R04.0 Epistaxis (principal); Z87.891 Personal history of nicotine dependence
CPT/HCPCS: 99283

== ENCOUNTER 2019-05-08 08:22 | Outpatient (CLI) | payer MEDICARE ==
[2019-05-08 09:28] LABS: INR-International Normal Ratio 2.4; Prothrombin Time 26.2 SEC (12.0-14.7)
== END 2019-05-08 08:23 | disposition home or self-care (01) ==
LOC: MADLABBHPM 08:22
PROVIDERS: ATTEND Family Medicine
DX: Z86.718 Personal history of other venous thrombosis and embolism (principal)
CPT/HCPCS: 36415; 85610

== ENCOUNTER 2019-08-05 12:02 | Outpatient (CLI) | payer MEDICARE ==
[2019-08-05 12:17] LABS: INR-International Normal Ratio 2.1; Prothrombin Time 23.5 SEC (12.0-14.7)
[2019-08-05 13:38] LABS: ALT (SGPT) 24 U/L (8-55); AST (SGOT) 28 U/L (5-34); Albumin 3.8 g/dL (3.4-4.8); Alkaline Phosphatase 100 U/L (40-110); Anion Gap 15 mmol/L (10-20); BUN (Urea Nitrogen) 9 mg/dL (9.8-20.1); Bilirubin, Total 0.9 mg/dL (0.2-1.2); Calc. Creatinine Clearance 0 mL/min (70-130); Calcium 9.5 mg/dL (7.8-10.44); Carbon Dioxide 27 mmol/L (23-31); Cardiac Risk 3.5 (Less than 4.5); Chloride 96 mmol/L (98-107); Cholesterol 159 mg/dl (< 200 Desired); Estimated GFR-MDRD 73; Globulin 3.2 g/dL (2.4-3.5); Glucose 108 mg/dL (83-110); HDL Cholesterol 46 mg/dL (>60 Neg Risk); LDL Cholesterol, Calculated 85 mg/dL; Potassium 3.6 mmol/L (3.5-5.1); Sodium 134 mmol/L (136-145); Triglycerides 141 mg/dL (Less than 150)
[2019-08-05 13:58] LABS: Thyroid Stimulating Hormone 0.1579 uIU/mL (0.35-4.94)
[2019-08-05 17:58] LABS: Creatinine, Urine 21.47 mg/dL (47-110); Microalbumin Urine Less than 1.0 mg/dL (0.5-50.0)
[2019-08-05 18:01] LABS: Free Thyroxine Index 2.97 (1.4-3.1); T4 12.1 ug/dL (4.87-11.72)
[2019-08-05 19:08] LABS: Vitamin D, 25 Hydroxy 143.6 ng/ml (> 30.0)
== END 2019-08-05 12:03 | disposition home or self-care (01) ==
LOC: MADLAB 12:02
PROVIDERS: ATTEND Internal Medicine Cardiovascular Disease
DX: E03.9 Hypothyroidism, unspecified (principal); E55.9 Vitamin D deficiency, unspecified; D51.8 Other vitamin B12 deficiency anemias; E78.5 Hyperlipidemia, unspecified; E11.65 Type 2 diabetes mellitus with hyperglycemia; Z86.718 Personal history of other venous thrombosis and embolism
CPT/HCPCS: 80053; 80061; 82043; 82306; 82607; 84436; 84443; 84479; 85610

== ENCOUNTER 2020-02-20 08:23 | Outpatient (CLI) | payer MEDICARE ==
[2020-02-20 08:47] LABS: INR-International Normal Ratio 2.8; Prothrombin Time 28.9 sec (12.0-14.7)
== END 2020-02-20 08:24 | disposition home or self-care (01) ==
LOC: MADLAB 08:23
PROVIDERS: ATTEND Internal Medicine Cardiovascular Disease
DX: Z51.81 Encounter for therapeutic drug level monitoring (principal); Z86.718 Personal history of other venous thrombosis and embolism; Z79.01 Long term (current) use of anticoagulants
CPT/HCPCS: 36415; 85610

== ENCOUNTER 2020-03-17 14:24 | Outpatient (CLI) | payer MEDICARE ==
--- NOTE | 2020-03-17 14:44 | RAD ---
XR Foot Lt 3 View STANDARD HISTORY: Injury, left foot pain FINDINGS: No fracture or dislocation is identified. Degenerative changes are present.
== END 2020-03-17 14:25 | disposition home or self-care (01) ==
LOC: MADRAD 14:24
PROVIDERS: ATTEND Family Medicine
DX: M79.672 Pain in left foot (principal)

== ENCOUNTER 2020-06-09 12:15 | Outpatient (CLI) | payer MEDICARE ==
--- NOTE | 2020-06-09 13:47 | RAD ---
PA AND LATERAL CHEST: Date: 06/09/2020 HISTORY: Acute bronchitis. COMPARISON: 12/31/2018 exam. FINDINGS: Heart size is enlarged. The indistinct parenchymal changes along the right heart border are similar t o the prior exam and are felt to be chronic in nature. Slightly more prominent markings in the region of the lingula are present. The other parenchymal lung changes are fairly similar to the prior exam. IMPRESSION: Cardiomegaly with some chronic lung changes. Some of the lingular parenchymal changes appear slightly more prominent than on the prior exam and could represent some more acute infiltrative change. POS: [facility]
== END 2020-06-09 12:16 | disposition home or self-care (01) ==
LOC: MADRAD 12:15
PROVIDERS: ATTEND Family Medicine
DX: J20.9 Acute bronchitis, unspecified (principal); I51.7 Cardiomegaly
CPT/HCPCS: 71046